=== PATIENT | male | born 1980 | race African-American/Black ===

== ENCOUNTER 2017-02-14 04:43 | Emergency (ER) | payer OTHER ==
[~2017-02-14] VITALS: Ht 172.7 cm; Wt 88.6 kg
[2017-02-14 04:48] VITALS: BP 144/79
[2017-02-14] MEDS: MUPIROCIN CALCIUM 2% 22 GM OINTMENT TP ONE (05:01)
[2017-02-14] MEDS: IBUPROFEN 800 MG TABLET PO ONE (05:03)
[2017-02-14] MEDS: PERTUSS(ACELL),DIPH,TET VAC/PF 0.5 ML VIAL IM ONE (05:04)
== END 2017-02-14 05:23 | disposition home or self-care (01) ==
LOC: EMS 04:44
DX: S91.114A Laceration without foreign body of right lesser toe(s) without damage to nail, initial encounter (principal); F12.90 Cannabis use, unspecified, uncomplicated; F15.90 Other stimulant use, unspecified, uncomplicated; V18.9XXA Unspecified pedal cyclist injured in noncollision transport accident in traffic accident, initial encounter; Y93.89 Activity, other specified; Y92.89 Other specified places as the place of occurrence of the external cause; Y99.8 Other external cause status
CPT/HCPCS: 90471; 90715; 99283